=== PATIENT | female | born 1960 | race Caucasian/White ===

== ENCOUNTER 2021-10-08 10:28 | Emergency (ER) | payer OTHER ==
--- NOTE | 2021-10-08 10:32 | ERPHSYRPT ---
- History of Present Illness Time Seen by Provider: 10/08/21 10:32 Source: patient Exam Limitations: no limitations Physician History: This is a 61-year-old right-handed white female who has a history of diabetes, elevated cholesterol and hypertension who presents with left shoulder pain. It was sudden in onset. Patient was walking a horse and the horse took off running and she held onto the reigns in order to try to control the horse. Patient has had pain since this occurred this morning. She is unable to extend or elevate her left shoulder. She did not fall onto her shoulder Occurred: just prior to arrival Method of Injury: other (Sudden pulling) Quality: constant, aching, throbbing Severity of Pain-Max: moderate Severity of Pain-Current: moderate Extremities Pain Location: shoulder: left Modifying Factors: Improves With: immobilization (Improves), movement (Worsens) Allergies/Adverse Reactions: No Known Drug Allergies Allergy (Unverified 10/08/21 10:43) Home Medications: Atorvastatin Calcium 1 tab DAILY 10/08/21 [History] Dapagliflozin Propanediol [Farxiga] 1 tab DAILY 10/08/21 [History] Dulaglutide [Trulicity] 1 units SQ WEEKLY 10/08/21 [History] Ergocalciferol (Vitamin D2) [Vitamin D2] 50,000 unit PO Q7D 10/08/21 [History] Insulin Glargine,Hum.rec.anlog [Basaglar Kwikpen U-100] 100 units SQ DAILY 10/08/21 [History] Meloxicam 1 tab DAILY 10/08/21 [History] Naproxen 500 mg [Naprosyn 500 MG] 1 tab DAILY 10/08/21 [History] [place] 3,6,9 Combination No.7 [[place] Dha] 92 mg PO DAILY 10/08/21 [History] Paroxetine Mesylate 7.5 mg PO DAILY 10/08/21 [History] Saxagliptin HCl/Metformin HCl [Kombiglyze Xr 5-1,000 mg Tab] 1 tab DAILY 10/08/21 [History] Venlafaxine HCl [Venlafaxine HCl ER] 150 mg PO DAILY 10/08/21 [History] lisinopriL [Lisinopril] 40 mg PO DAILY 10/08/21 [History] Travel Risk - International Travel Have you traveled outside of the country in past 3 weeks: No - Coronavirus Screening Are you exhibiting any of the following symptoms?: No Close contact with a COVID-19 positive Pt in past 14-21 Days: No - Review of Systems Constitutional: No Symptoms Eyes: No Symptoms Ears, Nose, & Throat: No Symptoms Respiratory: No Symptoms Cardiac: No Symptoms Abdominal/Gastrointestinal: No Symptoms Genitourinary Symptoms: No Symptoms Musculoskeletal: Injury (Left shoulder), Joint Pain (Left shoulder) Skin: No Symptoms Neurological: No Symptoms Psychological: No Symptoms Endocrine: No Symptoms Hematologic/Lymphatic: No Symptoms Immunological/Allergic: No Symptoms All Other Systems: Reviewed and Negative - Past Medical History Pertinent Past Medical History: Yes - Past Surgical History Past Surgical History: Yes - Nursing Vital Signs Nursing Vital Signs: Initial Vital Signs Temperature 97.5 F 10/08/21 10:32 Pulse Rate 77 10/08/21 10:32 Respiratory Rate 15 10/08/21 10:32 Blood Pressure 153/71 10/08/21 10:32 O2 Sat by Pulse Oximetry 97 10/08/21 10:32 Pain Scale Pain Intensity 8 - Physical Exam General Appearance: no apparent distress, alert, anxiety Eyes, Ears, Nose, Throat Exam: normal ENT inspection, moist mucous membranes Neck Exam: normal inspection, non-tender, supple, full range of motion Cardiovascular/Respiratory Exam: chest non-tender, no respiratory distress Abdominal Exam: non-tender Back Exam: normal inspection, normal range of motion, No CVA tenderness, No vertebral tenderness Shoulder Exam: normal inspection, no evidence of injury, bone tenderness, limited ROM, soft tissue tenderness Elbow/Forearm Exam: normal inspection, non-tender, no evidence of injury, normal ROM Wrist Exam: normal inspection, non-tender, no evidence of injury, normal ROM Hand Exam: normal inspection, non-tender, no evidence of injury, normal ROM Neuro/Tendon Exam: normal sensation, normal motor functions, normal tendon functions, responds to pain Mental Status Exam: alert, oriented x 3, cooperative Skin Exam: normal color, warm, dry SpO2 Interpretation: normal O2 Delivery: Room Air - Course Nursing assessment & vital signs reviewed: Yes Ordered Tests: Active Orders 24 hr Category Date Time Status Sling Application STAT Care 10/08/21 11:47 Ordered SHOULDER Stat Exams 10/08/21 10:59 Completed - Progress Progress: improved, pain not gone completely, re-examined Progress Note: 10/08/21 11:49 X-ray of the left shoulder shows a nondisplaced, comminuted fracture of the greater tuberosity of the left humerus Counseled pt/family regarding: diagnosis, need for follow-up, rad results - Departure Departure Disposition: Home Clinical Impression: Fracture of humerus, left, closed Condition: Stable Critical Care Time: No Referrals: Provider,Unknown [Primary Care Provider] - [facility], [facility] [id number] Additional Instructions: Take your medication as prescribed. Wear the sling for comfort. Follow-up with the orthopedic clinic here at [facility] for further management. Prescriptions: Oxycodone HCl/Acetaminophen [Percocet 5-325 mg Tablet] 1 each PO Q8H PRN PRN #6 tablet MDD 3 PRN Reason: Pain Cyclobenzaprine HCl 10 mg [Cyclobenzaprine 10 MG] 10 mg PO TID #10 tablet
--- NOTE | 2021-10-08 11:38 | XRAY ---
Indication: Pain following fall. Comparison: None 3 view left shoulder obtained using portable technique demonstrates nondisplaced comminuted fracture greater tuberosity humerus. Elsewhere osteopenia and mild acromioclavicular degenerative arthropathy. No other bony, articular, or soft tissue abnormalities.
[2021-10-08] MEDS ORDERED: PERCOCET TABLET 5/325MG ONE (11:55)
[2021-10-08] MEDS ORDERED: DELTASONE 20 MG ONE (11:55)
[2021-10-08] MEDS: DELTASONE 20 MG PO ONE (11:58)
[2021-10-08] MEDS: PERCOCET TABLET 5/325MG PO STA (11:58)
[2021-10-08] MEDS: Norflex 100 MG Tablet PO ONE (12:00)
[2021-10-08 12:23] VITALS: BP 118/75; PULSE 75; O2SAT 96
== END 2021-10-08 12:24 | disposition home or self-care (01) ==
LOC: ED 10:28
DX: S42.255A Nondisplaced fracture of greater tuberosity of left humerus, initial encounter for closed fracture (principal); X50.0XXA Overexertion from strenuous movement or load, initial encounter; Y93.52 Activity, horseback riding; E11.8 Type 2 diabetes mellitus with unspecified complications; Z79.4 Long term (current) use of insulin; Z79.84 Long term (current) use of oral hypoglycemic drugs; E78.5 Hyperlipidemia, unspecified; I10 Essential (primary) hypertension
CPT/HCPCS: 73030; 99284; A9270-GY